=== PATIENT | male | born 1965 | race African-American/Black ===

== ENCOUNTER 2021-10-28 16:56 | Emergency (ER) | payer MEDICARE, MEDICAID, SELFPAY ==
[2021-10-28 17:16] VITALS: BP 103/81; PULSE 84; RESP 18; TEMP 36.4; O2SAT 100
--- NOTE | 2021-10-28 17:22 | ED.BACK ---
HPI - Back Pain/Injury General Chief Complaint: Back Pain/Injury Stated Complaint: back pain Time Seen by Provider: 10/28/21 17:06 Limitations: no limitations History of Present Illness HPI Narrative: 56-year-old male with history of sciatica presented to the emergency department for evaluation of acute onset of right lower back pain. Patient states he did have back surgery in 2010, patient is unsure of when he had his last episode of sciatica. Patient denies any falls or injuries but states he has been walking more recently due to his being currently homeless. Patient states that the pain started approximately 5 hours ago. Patient describes the pain as right lower back pain that radiates to his right buttock. Patient states the pain does radiate down his right lower leg but does not go past the knee. Patient denies any associated numbness or weakness. Patient denies any other pain or injury. MD elicited complaint: back pain Related Data Home Medications Medication Instructions Recorded Confirmed No Home Medications 10/28/21 10/28/21 Allergies Allergy/AdvReac Type Severity Reaction Status Date / Time No Known Allergies Allergy Verified 10/28/21 17:23 Review of Systems Review of Systems: CONSTITUTIONAL: Denies fever, chills, or sweats. EYES: Denies visual changes, redness, or discharge. ENT: Denies rhinorrhea, congestion, sore throat, or otalgia. CARDIOVASCULAR: Denies chest pain, palpitations, or edema. RESPIRATORY: Denies cough or dyspnea. GASTROINTESTINAL: Denies abdominal pain, nausea, vomiting, or diarrhea. GENITOURINARY: Denies dysuria or hematuria. SKIN: Denies rash or itching. MUSCULOSKELETAL: Right lower back pain that radiates to his right buttock, NEUROLOGIC: Denies headache, numbness, or weakness. PSYCHIATRIC: Denies anxiety or depression. Exam Narrative: APPEARANCE: Well appearing, no pain in distress, well-nourished. Head normocephalic atraumtaic. NECK: Supple. No adenopathy, no masses. RESPIRATORY: Airway patent, repsirations nonlabored. Clear to auscultation bilaterally, no rales, rhonchi, wheezing. CARDIOVASCULAR: Regular rate and rhythm without murmurs rubs or gallops. ABDOMINAL: Soft, nontender, nondistended, no hepatosplenomegally MUSCULOSKELETAl: Moves all extremities. Strenght/ROM intact, No edema, No calf tenderness. Some reproducible right buttock pain to palpation, neurovascularly intact, normal skin NEURO: Alert. Cranial nerves II through XII intact. Good gait. Good coordination SKIN: Warm, dry. Normal Color PSYCHIATRIC: Normal affect/mood, normal interaction with parents. Course Course Emergency Course: Patient was updated on the suspected diagnosis of sciatica. Patient was comfortable with the plan for treatment here in the emergency department. Patient states he does think that his sister will be also helpful with medications if anything is prescribed. Patient is now stating he is suicidal. Patient was medically cleared to be evaluated by the crisis counselor. The crisis counselor is going to seek voluntary placement for the patient. Reevaluation(s) Reevaluation #1: Patient states that he is suicidal. Patient reports longstanding suicidal ideation with intent to act on these feelings. Patient states it is not just due to his back pain but that he has multiple new life stressors including being homeless. Patient denies any attempt. Patient is requesting to talk to a counselor. Psych medical clearance labs were ordered along with medications for pain control for his sciatica. Time: 17:55 Reevaluation #2: Patient is medically cleared for evaluation by crisis. Time: 19:36 Vital Signs Vital signs: Vital Signs Temperature 97.6 F 10/28/21 17:16 Pulse Rate 84 10/28/21 17:16 Respiratory Rate 18 10/28/21 17:16 Blood Pressure 103/81 10/28/21 17:16 Pulse Oximetry 100 10/28/21 17:16 Temperature 97.6 F 10/28/21 17:16 Pulse Rate 84 10/28/21 17:16 Respiratory Rate 18
[2021-10-28] MEDS: KETOROLAC (*BKC) 60 MG/2 ML VIAL IM (17:40)
[2021-10-28] MEDS: ORPHENADRINE CITRATE 100 MG TABLET.ER PO (17:42)
--- NOTE | 2021-10-28 17:55 | PC.NURSE ---
Pt scored high on columbia scale admission questions, states he is actively suicidal due to pain and other social factors in his life. He is currently homeless. MD aware, suicide precautions initiated. Pt informed of suicide precautions, placed in green scrubs, personal belongings locked, food safety field specialist at bedside. Pt also noted to have an additional medical wristband that did not belong to our hospital. When questioned, patient states he was at [facility] this AM, stated they did not give him anything for pain, gave him something for anxiety . MD aware, cancelled order for [place] to avoid double dosing any potential narcotics.
[2021-10-28 18:24] LABS: Add Urine Microscopic? NO; Appearance Urine Clear (Clear); Bilirubin Urine Negative (Negative); Blood Urine Negative (Negative); Color Urine Colorless (Yellow); Glucose Urine UA Negative (Negative); Ketones Urine Negative (Negative); Leukocyte Esterase Ur Negative LEU/UL (Negative); Nitrate Urine Negative (Negative); Protein Urine Negative (Negative); Specific Grav Ur 1.009 (1.001-1.035); Urobilinogen Urine Negative mg/dL (<2.0)
[2021-10-28 18:25] LABS: Basophils Percent Auto 0.4 % (0.2-1.2); Eosinophils Absolute Auto 0.2 K/mm3 (0-0.3); Eosinophils Percent Auto 2.7 % (0-4.4); Hematocrit 38.2 % (42.0-52.0); Hemoglobin 12.9 g/dL (14.0-18.0); Immature Granulocyte Absolute 0.01 K/mm3 (0.00-0.031); Immature Granulocyte Percent A 0.2 % (0-0.5); Lymphocytes Absolute Auto 2.13 K/mm3 (0.9-3.2); Lymphocytes Percent Auto 38.2 % (18.3-44.2); Mean Corpuscular HGB Conc 33.8 g/dl (32-36); Mean Corpuscular Volume 88.8 fl (80-100); Mean Platelet Volume 9.4 fl (7.4-10.4); Monocytes Absolute Auto 0.5 K/mm3 (0.1-0.6); Monocytes Percent Auto 8.1 % (2.6-8.5); Neutrophils Absolute Auto 2.8 K/mm3 (1.3-6.7); Neutrophils Percent Auto 50.4 % (45.5-73.1); Platelet Count Result 265 k/mm3 (150-375); Red Cell Distribution Width 13.7 % (11.5-14.5); White Blood Count 5.6 K/mm3 (4.5-10.0)
[2021-10-28 18:27] LABS: Amphetamine Screen Urine Negative (Negative); Barbiturate Screen Urine Negative (Negative); Benzodiazepines Screen Urine Negative (Negative); Cannabinoid Screen Urine Negative (Negative); Cocaine Screen Urine Positive (Negative); Methadone Screen Urine Negative (Negative); Opiate Screen Urine Negative (Negative); Phencyclidine Screen Urine Negative (Negative)
[2021-10-28 18:34] LABS: Acetaminophen < 10 ug/mL (10-30); Ethanol < 10 mg/dL (<10); Salicylate < 1.0 mg/dL (2-20)
[2021-10-28 18:35] LABS: Alanine Aminotransferase 16 U/L (4-50); Albumin Level 3.8 g/dL (3.5-5.1); Alkaline Phosphatase 59 U/L (38-126); Anion Gap 8 mmol/L (8-16); Aspartate Amino Transferase 20 U/L (17-59); Bilirubin,Total 0.2 mg/dL (0.2-1.3); Blood Urea Nitrogen 8 mg/dL (9-20); Calcium 8.7 mg/dL (8.4-10.2); Carbon Dioxide 24 mmol/L (22-30); Chloride 106 mmol/L (98-107); Estimated CRCL calculation 71 ml/min; Estimated Glomerular Filt Rate > 60; Glucose 94 mg/dL (65-110); Sodium 138 mmol/L (137-145)
--- NOTE | 2021-10-28 18:57 | ECG_ITS ---
Measurements Intervals [place] Rate: 71 P: 72 CO: 176 QRS: 69 QRSD: 80 T: 71 QT: 384 QTc: 419 Interpretive Statements SINUS RHYTHM POSSIBLE LEFT ATRIAL ENLARGEMENT INCOMPLETE RIGHT BUNDLE BRANCH BLOCK BORDERLINE ECG Electronically Signed On 10-28-2021 20:22:40 INVESTMENT ACCOUNTANT by Froilan Demarco D.O.
[2021-10-28] MEDS: HYDROcodone/acetaminophen (*CRX) 5-325 MG TABLET 1 TAB PO (19:05)
--- NOTE | 2021-10-28 19:18 | PC.NURSE ---
Per Dr Collins, patient is medically cleared at this time. Will call [facility]
--- NOTE | 2021-10-28 19:51 | PC.NURSE ---
[facility] here to evaluate pt at this time.
--- NOTE | 2021-10-28 20:36 | PC.NURSE ---
Rapid COVID swab sent to lab, lab called to inform of swab being sent. Per Hortensia from [facility], patient will qualify for voluntary admission. Was recently inpatient at [facility] for [facility] for about three days per patient for anxiety.
[2021-10-28 20:50] LABS: EDCOVIDSCREEN Negative (Negative)
--- NOTE | 2021-10-28 21:27 | PC.NURSE ---
Hortensia from [facility] has faxed information to [place], [place], [facility], and [place]. [facility] will not have any bed until at least the morning.
[2021-10-28] MEDS: diazePAM (*CRX) 5 MG TABLET PO (23:12)
[2021-10-28 23:59] VITALS: BP 143/82; PULSE 75; RESP 22; TEMP 36.6; O2SAT 99
--- NOTE | 2021-10-29 03:59 | PC.NURSE ---
0029- updated vitals and copy of voluntary admit form faxed to Martina at [facility] [facility]240- Facesheet faxed to Talisha NULL at [facility]. 4- [facility] called for BLS transfer to [facility], Rm [phone]. ETA [phone]
--- NOTE | 2021-10-29 04:15 | PC.NURSE ---
Pt up to use the restroom. RN noted at this time that pt had on a tank top under green paper scrubs, underwear and earrings on. RN had itens removed from room and placed them in locked cabinet with other clothing.
--- NOTE | 2021-10-29 05:43 | PC.NURSE ---
RN called Zandra NULL at [facility] to update him that EMS was in the ER to [facility] for transport and would arrive soon
== END 2021-10-29 05:45 ==
PROVIDERS: Emergency Medicine; Emergency Provider Emergency Medicine
DX: M54.41 Lumbago with sciatica, right side (principal); R45.851 Suicidal ideations; F32.A Depression, unspecified; Z59.00 Homelessness unspecified; Z20.822 Contact with and (suspected) exposure to COVID-19; I45.10 Unspecified right bundle-branch block; R94.31 Abnormal electrocardiogram [ECG] [EKG]
CPT/HCPCS: 36415; 80053; 80307; 81003; 84443; 85025; 87426; 93005; 96372; 99285; A9270; C9803; J1100; J1885

== ENCOUNTER 2022-08-23 21:10 | Emergency (ER) | payer MEDICARE, MEDICAID, SELFPAY ==
[2022-08-23 21:28] VITALS: BP 158/84; PULSE 95; RESP 16; TEMP 36.1; O2SAT 96
--- NOTE | 2022-08-23 23:37 | ED.EAR ---
HPI - Ear Problem General Chief complaint: Ear <DOROTHY Muhammad Last Filed: 08/24/22 00:11> Stated complaint: ear pain, shoulder pain <DOROTHY Muhammad Last Filed: 08/24/22 00:11> Time Seen by Provider: 08/23/22 23:11 <DOROTHY Muhammad Last Filed: 08/24/22 00:11> Source: patient <DOROTHY Muhammad Last Filed: 08/24/22 00:11> Mode of arrival: ambulatory <DOROTHY Muhammad Last Filed: 08/24/22 00:11> Limitations: no limitations <DOROTHY Muhammad Last Filed: 08/24/22 00:11> History of Present Illness HPI Narrative: Patient is a 57-year-old male who presents the ED with report of left ear/jaw pain. He states he has been having pain over the last few weeks, but became worse today. He has been intermittently taking Ibuprofen for this. Pain worse with opening and closing jaw, eating. No drainage from ears, fever, R ear pain, cough, cold symptoms, dental pain, hearing changes, tinnitus, headache. <DOROTHY Muhammad Last Filed: 08/24/22 00:11> Related Data Allergies/adverse reactions: Allergies Allergy/AdvReac Type Severity Reaction Status Date / Time No Known Allergies Allergy Verified 08/25/22 11:23 <DOROTHY Muhammad Last Filed: 08/24/22 00:11> Review of Systems Review of Systems: CONSTITUTIONAL: Denies fever, chills, or sweats. ENT: Reports L sided ear/jaw pain. Denies rhinorrhea, congestion, sore throat, tinnitus, hearing changes. CARDIOVASCULAR: Denies chest pain. RESPIRATORY: Denies cough or dyspnea. NEUROLOGIC: Denies headache, numbness, or weakness. <DOROTHY Muhammad Last Filed: 08/24/22 00:11> All systems reviewed & are unremarkable except as noted in HPI and below <Julia Benavides PA-C - Last Filed: 08/24/22 00:11> [facility] Past Medical History Medical History: Medical History (Updated 08/25/22 @ 12:06 by Ximena Rogers PA-C) Anxiety HTN (hypertension) Peripheral neuropathy Shoulder tendinitis <Julia Benavides PA-C - Last Filed: 08/24/22 00:11> Surgical History Surgical History: Surgical History (Updated 08/24/22 @ 00:02 by Julia Benavides PA-C) History of back surgery History of neck surgery <Julia Benavides PA-C - Last Filed: 08/24/22 00:11> Social History Social History: Social History (Updated 08/24/22 @ 00:02 by Julia Benavides PA-C) Smoking status: Current every day smoker Substance use type: crack/cocaine <Julia Benavides PA-C - Last Filed: 08/24/22 00:11> Exam Narrative: GENERAL: Well appearing, well-nourished, non-toxic, in no acute distress. HEAD: Normocephalic, atraumatic. EYES: PERRL/EOMI, conjunctivae clear bilaterally. NOSE: Normal, no drainage. EARS:TMS clear, with good light reflex. No erythema or bulging. No swelling or redness of EAC bilaterally. Tenderness palpation directly over left sided TMJ. No significant clicking or crepitus with opening/closing mouth. No overlying redness/warmth. ENT: Normal mucosa, no signs of infection. Previous dental extractions, no signs of focal abscess. NECK: Supple. No adenopathy, no masses. RESPIRATORY: Airway patent, respirations nonlabored. CARDIOVASCULAR: Regular rate and rhythm without murmurs, rubs, or gallops. Radial pulses 2+ and equal bilaterally. MUSCULOSKELETAL: Moves all extremities. Strength/ROM intact without gross deformities. Right upper extremity in sling from reported shoulder tendinitis. SKIN: Warm, dry, normal color. No rashes. NEURO: A&O X3. Speech clear. Cranial nerves II-XII grossly intact. Steady gait. No ataxic movements. PSYCHIATRIC: Appropriate mood and affect. Normal interaction. <Julia Benavides PA-C - Last Filed: 08/24/22 00:11> Course [employer] SOCIAL WORKER/PA Physician Supervision For this encounter, I have reviewed the mid-level provider documentation, treatment plan and medical decision making. History and ph
[2022-08-23] MEDS: KETOROLAC (*BKC) 60 MG/2 ML VIAL IM (23:47)
[2022-08-24] VITALS: BP 142/95; PULSE 86; RESP 18; O2SAT 98
== END 2022-08-24 00:04 | disposition home or self-care (01) ==
PROVIDERS: Emergency Provider Emergency Medicine
DX: M26.622 Arthralgia of left temporomandibular joint (principal); I10 Essential (primary) hypertension; G62.9 Polyneuropathy, unspecified
CPT/HCPCS: 96372; 99283; J1885

== ENCOUNTER 2022-08-25 10:31 | Emergency (ER) | payer MEDICARE, MEDICAID, SELFPAY ==
--- NOTE | ~2022-08-25 | XR_ITS ---
XR shoulder RT min 2V 08/25/2022 11:42 INDICATION: Right shoulder pain PROCEDURE: 4 views right shoulder COMPARISON: No prior studies for comparison. FINDINGS: No fracture, subluxation or dislocation. There is anatomic alignment. No soft tissue abnorm ality. No foreign bodies. IMPRESSION: 1: NO ACUTE BONE OR JOINT ABNORMALITY IDENTIFIED. Reviewed, dictated and finalized at location A.
[2022-08-25 10:48] VITALS: BP 155/94; PULSE 93; RESP 16; TEMP 36.6; O2SAT 99
--- NOTE | 2022-08-25 11:25 | ED.UPPEXIN ---
HPI - Extremity Injury (Upper) General Chief Complaint: Extremity Injury, Upper Stated Complaint: right shoulder injury Time Seen by Provider: 08/25/22 10:58 History of Present Illness HPI narrative: 57 year old male here for evaluation of shoulder pain over the past 4 days. Patient states that the pain came on after a intense lifting workout at the time. He does have a history of a rotator cuff tear and states this feels similar, this was managed nonoperatively by an orthopedist in [place]. He has been attempting Tylenol, ibuprofen and wearing a shoulder sling without significant relief of his pain. States the pain is localized around his humeral head and is exacerbated with positions, particularly external and internal rotation. He denies any weakness in the arm, numbness or tingling. Related Data Allergies Allergy/AdvReac Type Severity Reaction Status Date / Time No Known Allergies Allergy Verified 08/25/22 11:23 [facility] Past Medical History Medical History (Updated 08/25/22 @ 12:06 by Ximena Rogers PA-C) Anxiety HTN (hypertension) Peripheral neuropathy Shoulder tendinitis Surgical History Surgical History (Updated 08/24/22 @ 00:02 by Julia Benavides PA-C) History of back surgery History of neck surgery Social History Social History (Updated 08/24/22 @ 00:02 by Julia Benavides PA-C) Smoking status: Current every day smoker Substance use type: crack/cocaine Course Vital Signs Vital signs: Vital Signs Temperature 97.8 F 08/25/22 10:48 Pulse Rate 93 08/25/22 10:48 Respiratory Rate 16 08/25/22 10:48 Blood Pressure 155/94 H 08/25/22 10:48 Pulse Oximetry 99 08/25/22 10:48 Oxygen Delivery Room Air 08/25/22 10:48 Temperature 97.8 F 08/25/22 10:48 Pulse Rate 93 08/25/22 10:48 Respiratory Rate 16 08/25/22 10:48 Blood Pressure 155/94 H 08/25/22 10:48 Pulse Oximetry 99 08/25/22 10:48 Oxygen Delivery Room Air 08/25/22 10:48 MDM - Extremity Injury (Upper) MDM Narrative Medical decision making narrative: 57-year-old male here for evaluation of right shoulder pain over the past several days after a workout session. Patient has pain with range of motion of the shoulder. Shoulder x-ray with no acute disease. Likely tendinitis or rotator cuff tear. He has strong distal pulses and 5-5 strength; suspect pain is MSK in nature. Advised patient to wear his sling, use conservative measures and follow-up with orthopedist. He was given reasons to return to the ED and he voiced understanding. Discharge Plan Discharge Clinical Impression: Shoulder tendinitis Patient Disposition: Home, Self-Care Condition: Stable Instructions: Antibiotic Form Additional Instructions: The x-ray of your shoulder was normal in the emergency department. Alternate between Tylenol and ibuprofen. You can take 1000mg of Tylenol every 6 hours and 800 mg Motrin/ibuprofen every 8 hours. Please follow-up with orthopedic doctor for further evaluation. Wear the sling for your comfort. Return to the emergency department if you cannot move the shoulder at all, you develop a fever or chills. Prescriptions: No Action diclofenac sodium 1 % gel 2 g topical QID Qty: 100 0RF Follow-up/Referrals: Buzz Bacon MD [Physician] - 1 Week PHYSICIAN NOT ON STAFF,NONSTAFF [Primary Care Provider] -
[2022-08-25] MEDS: LIDOCAINE 5% PATCH 1 PATCH TRANSDERM (11:30)
[2022-08-25] MEDS: ACETAMINOPHEN 500 MG TABLET 1000 MG PO (11:31)
--- NOTE | 2022-08-25 11:41 | PC.NURSE ---
pt. to XR
== END 2022-08-25 12:15 | disposition home or self-care (01) ==
PROVIDERS: Emergency Provider Emergency Medicine
DX: M77.8 Other enthesopathies, not elsewhere classified (principal)
CPT/HCPCS: 73030; 99283; A9270